=== PATIENT | female | born 1990 | race Caucasian/White ===

== ENCOUNTER 2016-08-02 16:25 | Emergency (ER) | payer OTHER ==
[~2016-08-02 16:25] MED LIST: ACET50TA PO; ADV250INH INH; ALBU17IN INH; CLAR1TAB2 PO; DELT1TAB PO; IBUP80TA PO; IPRASOL4 IN; LEVA500T PO; MIREIUD IU; NORE0.352 PO; OMEP40CA2 PO; PRENTAB74 PO; PROA1AER INH
[2016-08-02] MEDS ORDERED: ONDANSETRON 4 MG ORAL DISINTEGRATING TAB (S0181) As Ordered ONE (18:27)
[2016-08-02] MEDS ORDERED: ACETAMINOPHEN 325 MG TAB As Ordered ONE (18:27)
--- NOTE | 2016-08-02 19:10 | REPUSA ---
CLINICAL HISTORY: Trauma. TECHNIQUE: Multiple axial CT images were obtained through brain without IV contrast material. COMMENTS: The study shows normal configuration of sella turcica. There are no intra or extra-axial collections. There is no mass effect or midline shift. There is no evidence of hematoma formation. No hydrocephalus is present. The ventricles are symmetrical. No abnormal calcifications are present. No significant focal abnormalities are seen either in the posterior fossa or supratentorial compartme nt. IMPRESSION: No acute intracranial pathology. Thank you for your kind referral of this patient.
--- NOTE | 2016-08-02 19:36 | EDDOCDS ---
Physician Documentation [facility] Name: Sinai Omalley Age: 26 yrs Sex: Female : 1990 Arrival Date: 08/02/2016 Time: 16:25 Bed Private MD: Khari Parikh O Disposition: 08/02/16 19:23 Discharged to Home/Self Care. Impression: Concussion with loss of consciousness of 30 minutes or less, Contusion of lower back and pelvis. - Condition is Stable. - Discharge Instructions: Back Pain, Adult, Concussion, Adult, Head Injury, Adult. - Prescriptions for ZOFRAN ODT 4 mg - dissolve 1 tablet by ORAL route 4 times per day As needed do not chew, do not swallow whole; 10 tablet. - Work Release Form - 3 day, Medication Reconciliation, Local Pharmacy Hours form. - Follow up: Khari Parikh; When: Call to arrange an appointment; Reason: Recheck today's complaints, Continuance of care. - Problem is new. - Symptoms are unchanged. Historical: - Allergies: SHELLFISH; sea food; mushrooms; - Home Meds: 1. advair inhaler not diskus twice a day (Last dose: 08/02/2016 07:00) 2. Albuterol Inhl as needed (Last dose: 08/02/2016) 3. Claritin 10 mg Oral tab 1 tab once daily all out has been about 4 days (Last dose: 08/02/2016 07:00) 4. Mirena IUD (Last dose: 08/02/2016) 5. Miralax 17 gram Oral pwpk 1 packet once daily (Last dose: 08/02/2016 07:00) - PMHx: Seasonal Allergies; Ovarian cyst; Asthma; - PSHx: d&C 2008; - Social history: Smoking status: Patient states was never smoker of tobacco. Patient/guardian denies using alcohol, street drugs, No barriers to communication noted, The patient speaks fluent Telugu, Speaks appropriately for age. - Family history: Not pertinent. - : The pt / caregiver states he / she is not on anticoagulants. Home medication list is obtained from the patient. - Exposure Risk Screening:: None identified. 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 5 in. (165.10 cm) (R); Pain 9/10; 19:34 BP 117 / 76; Pulse 80; Resp 18; Temp 96.9; Pulse Ox 97% ; Pain 6/10; rn1 16:27 Body Mass Index 27.46 (74.84 kg, 165.10 cm) dem1 [place] Coma Score: 17:10 Eye Response: spontaneous(4). Verbal Response: oriented(5). Motor Response: obeys ttb commands(6). Total: 15. MDM: 18:17 Ondansetron ODT Oral Disintegrating Tablet 4 mg PO once ordered. mo1 18:17 Acetaminophen Tablet 975 mg PO once ordered. mo1 18:18 CT Head Without Contrast Ordered. EDMS 18:19 Spine. Lumbosacral, Complete Ordered. EDMS 18:42 Financial registration complete. gjb 18:44 [facility] Payment Agreement was scanned into [employer] and attached to record. gjb Administered Medications: 18:30 Drug: Ondansetron ODT 4 mg [ondansetron 4 mg disintegrating tablet (1 tabs)] Route: PO; ttb 18:30 Drug: Acetaminophen 975 mg [acetaminophen 325 mg tablet (3 tabs)] Route: PO; ttb Signatures: Dispatcher [facility] EDWI Hannah Hansen RN RN ttb Tex Magaña PA PA mo1 Benji Bills RN RN jmb Beck, Gabriela gjb The chart was reviewed and I authenticate all verbal orders and agree with the evaluation and treatment provided.Attachments: 18:44 [facility] [place] Payment Agreement gjb MTDD
--- NOTE | 2016-08-02 19:36 | EDDOCDS ---
Nurse's Notes [facility] Name: Sinai Omalley Age: 26 yrs Sex: Female : 1990 Arrival Date: 08/02/2016 Time: 16:25 Bed PR Private MD: Khari Parikh O Diagnosis: Concussion with loss of consciousness of 30 minutes or less;Contusion of lower back and pelvis Presentation: 08/02 17:10 Presenting complaint: Patient states: pt fell and hit head on her tire around 345pm. Pt ttb states she does not know how long she was out for unknown amt of time. Friend told pt what happened..... "5 minutes but I don't remember". Headache now. Nausea. Lower Back pain. Pt drove herself here from work. unsure of time of unconsciousness -- friend witnessed. Mechanism of Injury: resulted from a fall. Adult Sepsis Screening: The patient does not have new or worsening altered mentation. Patient's respiratory rate is less than 22. Systolic blood pressure is greater than 100. Patient has a qSOFA score of 0- Negative Sepsis Screen. Suicide/Homicide risk assessment- the patient denies having any suicidal and/or homicidal ideations and does not present with any other emotional, behavioral or mental health complaints. Status: The patient is a dependent. Transition of care: patient was not received from another setting of care. 17:10 Acuity: CORAZON Level 4 ttb 17:10 Method Of Arrival: Walkin/Carried/Asstd ttb Triage Assessment: 17:13 General: Appears in no apparent distress, well nourished, well groomed, Behavior is ttb appropriate for age, cooperative, pleasant. Pain: Location: headache & lower back Pain currently is 9 out of 10 on a pain scale. HIV screening NA for this visit Offered previously. Neurological: Level of Consciousness is awake, alert, Oriented to person, place, time, Moves all extremities. Gait is steady, Speech is normal, Facial symmetry appears normal, Reports headache. Cardiovascular: Chest pain is denied. Respiratory: No deficits noted. Airway is patent Respiratory effort is even, unlabored, Denies cough, shortness of breath. GI: Reports nausea. Derm: Skin is normal. Musculoskeletal: Range of motion intact in all extremities. Injury Description: pt fell from standing. 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 advair inhaler not diskus twice a day (Last dose: 08/02/2016 07:00) 2. Albuterol Inhl as needed (Last dose: 08/02/2016) 3. Claritin 10 mg Oral tab 1 tab once daily all out has been about 4 days (Last dose: 08/02/2016 07:00) 4. Mirena IUD (Last dose: 08/02/2016) 5. Miralax 17 gram Oral pwpk 1 packet once daily (Last dose: 08/02/2016 07:00) - PMHx: Seasonal Allergies; Ovarian cyst; Asthma; - PSHx: d&C 2008; - Social history: Smoking status: Patient states was never smoker of tobacco. Patient/guardian denies using alcohol, street drugs, No barriers to communication noted, The patient speaks fluent Georgian, Speaks appropriately for age. - Family history: Not pertinent. - : The pt / caregiver states he / she is not on anticoagulants. Home medication list is obtained from the patient. - Exposure Risk Screening:: None identified. Screenin:27 Screening information is obtained from the patient. Fall risk: No risks identified. jmb Assistance ADL's: requires no assistance with activities of daily living. Abuse/DV Screen: The patient / caregiver reports he/she is: not in a situation that causes fear, pain or injury. Nutritional screening: No deficits noted. Advance Directives: Currently, there is no health care proxy. There is no active DNR order. There is no living will. There is no Power of Solar Sales Advisor. home support is adequate. Assessment: 19:27 General:. jmb 19:27 General: Patient instructed on discharge instructions. Patient asked if there were any b questions regarding discharge, patient stated no. Patient signed discharge instructions. Patient discharged in stable condition. . Vital Signs: 16:27 BP 138 / 85; Pulse 108; Resp 18; Temp 98.3(O); Pulse Ox 98% on R/A; Weight 74.84 kg dem1 (R); Height 5 ft. 5 in. (165.10 cm) (R); Pain 9/10; 19:34 BP 117 / 76; Pulse 80; Resp 18; Temp 96.9; Pulse Ox 97% ; Pain 6/10; rn1 16:27 Body Mass Index 27.46 (74.84 kg, 165.10 cm) dem1 Vitals: 16:27 Log In Time: August 02, 2016 at 16:23. dem1 [place] Coma Score: 17:10 Eye Response: spontaneous(4). Verbal Response: oriented(5). Motor Response: obeys ttb commands(6). Total: 15. ED Course: 16:27 Patient visited by Mackenzie Delvalle. dem1 16:27 Khari Parikh is Private Physician. dem1 16:27 Patient moved to Waiting dem1 16:29 Patient moved to Pre RCE dem1 17:12 Triage Initiated ttb 17:47 Patient moved to Triage 2 kr3 18:09 Tex Magaña PA is PHCP. mo1 18:09 Lucy Fontaine MD is Attending Physician. mo1 18:12 Patient visited by Tex Magaña PA. mo1 18:32 Patient moved to TR1 ttb 18:44 [facility] Payment Agreement was scanned into [employer] and attached to record. gjb 19:16 Patient visited by Cheyenne Tuttle RN. ck1 19:16 Patient moved to PR1 / 25 ck1 19:23 Khari Parikh is Referral Physician. mo1 19:27 The patient / caregiver is instructed regarding the plan of care and ED course. jmb 19:27 No IV's were initiated during this patient's visit. No procedures done that require jmb assistance. Administered Medications: 18:30 Drug: Ondansetron ODT 4 mg [ondansetron 4 mg disintegrating tablet (1 tabs)] Route: PO; ttb 18:30 Drug: Acetaminophen 975 mg [acetaminophen 325 mg tablet (3 tabs)] Route: PO; ttb Order Results: There are currently no results for this order. Outcome: 19:23 Discharge ordered by Provider. mo1 19:27 Discharge Assessment: Patient awake, alert and oriented x 3. No cognitive and/or jmb functional deficits noted. Patient verbalized understanding of disposition instructions. Patient awake and alert. obeys commands, Oriented to person, place and time. Patient verbalized understanding of disposition instructions. Patient has no functional deficits. patient administered narcotics - no. The following High Risk Discharge criteria are identified: None. Discharged to home ambulatory. Condition: stable. Discharge instructions given to patient, Instructed on discharge instructions, follow up and referral plans. Demonstrated understanding of instructions, Pt was receptive of discharge instructions/ teaching. CT Study completed. Property sent home with patient. 19:34 Patient left the ED. b Signatures: Cheyenne Tuttle,RN RN ck1 Doreen RetanaRN RN kr3 Mackenzie Delvalle1 Hannah Hansen RN RN ttb Tex Magaña PA PA mo1 Benji Bills RN RN Gaetano Gomez rn1 Melva Arroyo Corrections: (The following items were deleted from the chart) 17:14 17:10 Presenting complaint: Patient states: pt fell and hit head on her tire around ttb 345pm. Pt states she does not know how long she was out for unknown amt of time. Friend told pt what happened..... "5 minutes but I don't remember". Headache now. Nausea. Back pain. ttb MTDD
--- NOTE | 2016-08-02 19:58 | REP ---
Five view lumbosacral spine series, 08/02/2016: Indication: Trauma. Comparison: Lumbosacral spine series 07/24/2016. Findings: There is no acute fracture or spondylolisthesis in the lumbosacral spine. The disc spaces are well maintained. Visualized portions of sacrum and SI joints are intact. Intrauterine device is present in the lower central pelvis. There is very minimal lumbar levoscoliosis noted. Impression: Minimal lumbar levoscoliosis. No fracture or degenerative disc changes. Signed by Vanessa Palomares MD 08/05/2016 08:20 P
--- NOTE | 2016-08-04 20:36 | EDDOCDS ---
Nurse's Notes [facility] Name: Sinai Omalley Age: 26 yrs Sex: Female : 1990 Arrival Date: 08/02/2016 Time: 16:25 Bed PR Private MD: Khari Parikh O Diagnosis: Concussion with loss of consciousness of 30 minutes or less;Contusion of lower back and pelvis Presentation: 08/02 17:10 Presenting complaint: Patient states: pt fell and hit head on her tire around 345pm. Pt ttb states she does not know how long she was out for unknown amt of time. Friend told pt what happened..... "5 minutes but I don't remember". Headache now. Nausea. Lower Back pain. Pt drove herself here from work. unsure of time of unconsciousness -- friend witnessed. Mechanism of Injury: resulted from a fall. Adult Sepsis Screening: The patient does not have new or worsening altered mentation. Patient's respiratory rate is less than 22. Systolic blood pressure is greater than 100. Patient has a qSOFA score of 0- Negative Sepsis Screen. Suicide/Homicide risk assessment- the patient denies having any suicidal and/or homicidal ideations and does not present with any other emotional, behavioral or mental health complaints. Status: The patient is a dependent. Transition of care: patient was not received from another setting of care. 17:10 Acuity: CORAZON Level 4 ttb 17:10 Method Of Arrival: Walkin/Carried/Asstd ttb Triage Assessment: 17:13 General: Appears in no apparent distress, well nourished, well groomed, Behavior is ttb appropriate for age, cooperative, pleasant. Pain: Location: headache & lower back Pain currently is 9 out of 10 on a pain scale. HIV screening NA for this visit Offered previously. Neurological: Level of Consciousness is awake, alert, Oriented to person, place, time, Moves all extremities. Gait is steady, Speech is normal, Facial symmetry appears normal, Reports headache. Cardiovascular: Chest pain is denied. Respiratory: No deficits noted. Airway is patent Respiratory effort is even, unlabored, Denies cough, shortness of breath. GI: Reports nausea. Derm: Skin is normal. Musculoskeletal: Range of motion intact in all extremities. Injury Description: pt fell from standing. 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 advair inhaler not diskus twice a day (Last dose: 08/02/2016 07:00) 2. Albuterol Inhl as needed (Last dose: 08/02/2016) 3. Claritin 10 mg Oral tab 1 tab once daily all out has been about 4 days (Last dose: 08/02/2016 07:00) 4. Mirena IUD (Last dose: 08/02/2016) 5. Miralax 17 gram Oral pwpk 1 packet once daily (Last dose: 08/02/2016 07:00) - PMHx: Seasonal Allergies; Ovarian cyst; Asthma; - PSHx: d&C 2008; - Social history: Smoking status: Patient states was never smoker of tobacco. Patient/guardian denies using alcohol, street drugs, No barriers to communication noted, The patient speaks fluent Albanian, Speaks appropriately for age. - Family history: Not pertinent. - : The pt / caregiver states he / she is not on anticoagulants. Home medication list is obtained from the patient. - Exposure Risk Screening:: None identified. Screenin:27 Screening information is obtained from the patient. Fall risk: No risks identified. jmb Assistance ADL's: requires no assistance with activities of daily living. Abuse/DV Screen: The patient / caregiver reports he/she is: not in a situation that causes fear, pain or injury. Nutritional screening: No deficits noted. Advance Directives: Currently, there is no health care proxy. There is no active DNR order. There is no living will. There is no Power of Steam Drier Tender. home support is adequate. Assessment: 19:27 General:. jmb 19:27 General: Patient instructed on discharge instructions. Patient asked if there were any b questions regarding discharge, patient stated no. Patient signed discharge instructions. Patient discharged in stable condition. . Vital Signs: 16:27 BP 138 / 85; Pulse 108; Resp 18; Temp 98.3(O); Pulse Ox 98% on R/A; Weight 74.84 kg dem1 (R); Height 5 ft. 5 in. (165.10 cm) (R); Pain 9/10; 19:34 BP 117 / 76; Pulse 80; Resp 18; Temp 96.9; Pulse Ox 97% ; Pain 6/10; rn1 16:27 Body Mass Index 27.46 (74.84 kg, 165.10 cm) dem1 Vitals: 16:27 Log In Time: August 02, 2016 at 16:23. dem1 [place] Coma Score: 17:10 Eye Response: spontaneous(4). Verbal Response: oriented(5). Motor Response: obeys ttb commands(6). Total: 15. ED Course: 16:27 Patient visited by Mackenzie Delvalle. dem1 16:27 Khari Parikh is Private Physician. dem1 16:27 Patient moved to Waiting dem1 16:29 Patient moved to Pre RCE dem1 17:12 Triage Initiated ttb 17:47 Patient moved to Triage 2 kr3 18:09 Tex Magaña PA is PHCP. mo1 18:09 Lucy Fontaine MD is Attending Physician. mo1 18:12 Patient visited by Tex Magaña PA. mo1 18:32 Patient moved to TR1 ttb 18:44 [facility] Payment Agreement was scanned into [employer] and attached to record. gjb 19:16 Patient visited by Cheyenne Tuttle RN. ck1 19:16 Patient moved to PR1 / 25 ck1 19:23 Khari Parikh is Referral Physician. mo1 19:27 The patient / caregiver is instructed regarding the plan of care and ED course. jmb 19:27 No IV's were initiated during this patient's visit. No procedures done that require jmb assistance. 20:00 CT Head Without Contrast Returned. EDMS 20:01 Spine. Lumbosacral, Complete Returned. EDMS 08/03 07:03 T-Sheet-- Draft Copy was scanned into [employer] and attached to record. gb 10:57 Radiology Report was scanned into [employer] and attached to record. gb Administered Medications: 08/02 18:30 Drug: Ondansetron ODT 4 mg [ondansetron 4 mg disintegrating tablet (1 tabs)] Route: PO; ttb 18:30 Drug: Acetaminophen 975 mg [acetaminophen 325 mg tablet (3 tabs)] Route: PO; ttb Order Results: Radiology Order: CT Head Without Contrast Test: CT Head Without Contrast REASON FOR EXAMINATION: Trauma; ; CLINICAL HISTORY: Trauma.; TECHNIQUE: Multiple axial CT images were obtained through brain without IV contrast material.; COMMENTS:; The study shows normal configuration of sella turcica.; There are no intra or extra-axial collections. There is no mass effect or midline shift. There is no; evidence of hematoma formation. No hydrocephalus is present.; The ventricles are symmetrical. No abnormal calcifications are present.; No significant focal abnormalities are seen either in the posterior fossa or supratentorial compartme; nt.; IMPRESSION:; No acute intracranial pathology.; Thank you for your kind referral of this patient.; ; ; Radiology Order: Spine. Lumbosacral, Complete Test: Spine. Lumbosacral, Complete REASON FOR EXAMINATION: Trauma; Five view lumbosacral spine series, 08/02/2016:; ; Indication: Trauma.; ; Comparison: Lumbosacral spine series 07/24/2016.; ; Findings: There is no acute fracture or spondylolisthesis in the lumbosacral; spine. The disc spaces are well maintained. Visualized portions of sacrum and; SI joints are intact. Intrauterine device is present in the lower central; pelvis.; ; There is very minimal lumbar levoscoliosis noted.; ; Impression:; ; Minimal lumbar levoscoliosis. No fracture or degenerative disc changes.; ; ; ; ; Unreviewed; Outcome: 19:23 Discharge ordered by Provider. mo1 19:27 Discharge Assessment: Patient awake, alert and oriented x 3. No cognitive and/or jmb functional deficits noted. Patient verbalized understanding of disposition instructions. Patient awake and alert. obeys commands, Oriented to person, place and time. Patient verbalized understanding of disposition instructions. Patient has no functional deficits. patient administered narcotics - no. The following High Risk Discharge criteria are identified: None. Discharged to home ambulatory. Condition: stable. Discharge instructions given to patient, Instructed on discharge instructions, follow up and referral plans. Demonstrated understanding of instructions, Pt was receptive of discharge instructions/ teaching. CT Study completed. Property sent home with patient. 19:34 Patient left the ED. jmb Signatures: Dispatcher [employer] EDSuni Golden, Reg Reg Cheyenne DeleonRN RN ck1 Doreen Retana RN RN kr3 MookPennyinezduane dem1 Hannah Hansen RN RN ttb Tex Magaña PA PA mo1 Benji Bills RN RN avab Gaetano Hernandez rn1 Melva Arroyo Corrections: (The following items were deleted from the chart) 17:14 17:10 Presenting complaint: Patient states: pt fell and hit head on her tire around ttb 345pm. Pt states she does not know how long she was out for unknown amt of time. Friend told pt what happened..... "5 minutes but I don't remember". Headache now. Nausea. Back pain. ttb Chart Complete MTDD
--- NOTE | 2016-08-04 20:36 | EDDOCDS ---
Physician Documentation [facility] Name: Sinai Omalley Age: 26 yrs Sex: Female : 1990 Arrival Date: 08/02/2016 Time: 16:25 Bed Private MD: Khari Parikh O Disposition: 08/02/16 19:23 Discharged to Home/Self Care. Impression: Concussion with loss of consciousness of 30 minutes or less, Contusion of lower back and pelvis. - Condition is Stable. - Discharge Instructions: Back Pain, Adult, Concussion, Adult, Head Injury, Adult. - Prescriptions for ZOFRAN ODT 4 mg - dissolve 1 tablet by ORAL route 4 times per day As needed do not chew, do not swallow whole; 10 tablet. - Work Release Form - 3 day, Medication Reconciliation, Local Pharmacy Hours form. - Follow up: Khari Parikh; When: Call to arrange an appointment; Reason: Recheck today's complaints, Continuance of care. - Problem is new. - Symptoms are unchanged. Historical: - Allergies: SHELLFISH; sea food; mushrooms; - Home Meds: 1. advair inhaler not diskus twice a day (Last dose: 08/02/2016 07:00) 2. Albuterol Inhl as needed (Last dose: 08/02/2016) 3. Claritin 10 mg Oral tab 1 tab once daily all out has been about 4 days (Last dose: 08/02/2016 07:00) 4. Mirena IUD (Last dose: 08/02/2016) 5. Miralax 17 gram Oral pwpk 1 packet once daily (Last dose: 08/02/2016 07:00) - PMHx: Seasonal Allergies; Ovarian cyst; Asthma; - PSHx: d&C 2008; - Social history: Smoking status: Patient states was never smoker of tobacco. Patient/guardian denies using alcohol, street drugs, No barriers to communication noted, The patient speaks fluent Georgian, Speaks appropriately for age. - Family history: Not pertinent. - : The pt / caregiver states he / she is not on anticoagulants. Home medication list is obtained from the patient. - Exposure Risk Screening:: None identified. 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 5 in. (165.10 cm) (R); Pain 9/10; 19:34 BP 117 / 76; Pulse 80; Resp 18; Temp 96.9; Pulse Ox 97% ; Pain 6/10; rn1 16:27 Body Mass Index 27.46 (74.84 kg, 165.10 cm) dem1 [place] Coma Score: 17:10 Eye Response: spontaneous(4). Verbal Response: oriented(5). Motor Response: obeys ttb commands(6). Total: 15. MDM: 18:17 Ondansetron ODT Oral Disintegrating Tablet 4 mg PO once ordered. mo1 18:17 Acetaminophen Tablet 975 mg PO once ordered. mo1 18:18 CT Head Without Contrast Ordered. EDMS 18:19 Spine. Lumbosacral, Complete Ordered. EDMS 18:42 Financial registration complete. [facility] 18:44 [facility] Payment Agreement was scanned into [employer] and attached to record. [facility] 08/03 07:03 T-Sheet-- Draft Copy was scanned into [employer] and attached to record. 10:57 Radiology Report was scanned into [employer] and attached to record. gb Administered Medications: 08/02 18:30 Drug: Ondansetron ODT 4 mg [ondansetron 4 mg disintegrating tablet (1 tabs)] Route: PO; ttb 18:30 Drug: Acetaminophen 975 mg [acetaminophen 325 mg tablet (3 tabs)] Route: PO; ttb Signatures: Dispatcher [employer] EDIN Suni Harris, Reg Reg gb Hannah Hansen RN RN ttb Tex Magaña PA PA mo1 Benji Bills RN RN Melva Cramer The chart was reviewed and I authenticate all verbal orders and agree with the evaluation and treatment provided.Attachments: 18:44 [facility] Payment Agreement [facility] 08/03 07:03 T-Sheet-- Draft Copy gb Chart Complete MTDD
--- NOTE | 2016-08-04 20:36 | EDDOCDS ---
Physician Documentation [facility] Name: Sinai Omalley Age: 26 yrs Sex: Female : 1990 Arrival Date: 08/02/2016 Time: 16:25 Bed Private MD: Khari Parikh O Disposition: 08/02/16 19:23 Discharged to Home/Self Care. Impression: Concussion with loss of consciousness of 30 minutes or less, Contusion of lower back and pelvis. - Condition is Stable. - Discharge Instructions: Back Pain, Adult, Concussion, Adult, Head Injury, Adult. - Prescriptions for ZOFRAN ODT 4 mg - dissolve 1 tablet by ORAL route 4 times per day As needed do not chew, do not swallow whole; 10 tablet. - Work Release Form - 3 day, Medication Reconciliation, Local Pharmacy Hours form. - Follow up: Khari Parikh; When: Call to arrange an appointment; Reason: Recheck today's complaints, Continuance of care. - Problem is new. - Symptoms are unchanged. Historical: - Allergies: SHELLFISH; sea food; mushrooms; - Home Meds: 1. advair inhaler not diskus twice a day (Last dose: 08/02/2016 07:00) 2. Albuterol Inhl as needed (Last dose: 08/02/2016) 3. Claritin 10 mg Oral tab 1 tab once daily all out has been about 4 days (Last dose: 08/02/2016 07:00) 4. Mirena IUD (Last dose: 08/02/2016) 5. Miralax 17 gram Oral pwpk 1 packet once daily (Last dose: 08/02/2016 07:00) - PMHx: Seasonal Allergies; Ovarian cyst; Asthma; - PSHx: d&C 2008; - Social history: Smoking status: Patient states was never smoker of tobacco. Patient/guardian denies using alcohol, street drugs, No barriers to communication noted, The patient speaks fluent [place], Speaks appropriately for age. - Family history: Not pertinent. - : The pt / caregiver states he / she is not on anticoagulants. Home medication list is obtained from the patient. - Exposure Risk Screening:: None identified. 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 5 in. (165.10 cm) (R); Pain 9/10; 19:34 BP 117 / 76; Pulse 80; Resp 18; Temp 96.9; Pulse Ox 97% ; Pain 6/10; rn1 16:27 Body Mass Index 27.46 (74.84 kg, 165.10 cm) dem1 Yue Coma Score: 17:10 Eye Response: spontaneous(4). Verbal Response: oriented(5). Motor Response: obeys ttb commands(6). Total: 15. MDM: 18:17 Ondansetron ODT Oral Disintegrating Tablet 4 mg PO once ordered. mo1 18:17 Acetaminophen Tablet 975 mg PO once ordered. mo1 18:18 CT Head Without Contrast Ordered. EDMS 18:19 Spine. Lumbosacral, Complete Ordered. EDMS 18:42 Financial registration complete. [facility] 18:44 [facility] Payment Agreement was scanned into [employer] and attached to record. [facility] 08/03 07:03 T-Sheet-- Draft Copy was scanned into [employer] and attached to record. 10:57 Radiology Report was scanned into [employer] and attached to record. gb Administered Medications: 08/02 18:30 Drug: Ondansetron ODT 4 mg [ondansetron 4 mg disintegrating tablet (1 tabs)] Route: PO; ttb 18:30 Drug: Acetaminophen 975 mg [acetaminophen 325 mg tablet (3 tabs)] Route: PO; ttb Signatures: Dispatcher [employer] EDIL Suni Harris, Reg Reg gb Hannah Hansen RN RN ttb Tex Magaña PA PA mo1 Benji Bills RN RN Melva Cramer The chart was reviewed and I authenticate all verbal orders and agree with the evaluation and treatment provided.Attachments: 18:44 [facility] Payment Agreement [facility] 08/03 07:03 T-Sheet-- Draft Copy gb Chart Complete MTDD
== END 2016-08-02 19:34 | disposition home or self-care (01) ==
LOC: M ED 16:25
DX: S30.0XXA Contusion of lower back and pelvis, initial encounter (principal); S06.0X0A Concussion without loss of consciousness, initial encounter; W18.09XA Striking against other object with subsequent fall, initial encounter; Y92.89 Other specified places as the place of occurrence of the external cause; Y93.89 Activity, other specified; Y99.1 Military activity; J45.909 Unspecified asthma, uncomplicated; Z79.3 Long term (current) use of hormonal contraceptives; Z79.899 Other long term (current) drug therapy; Z91.013 Allergy to seafood; Z91.018 Allergy to other foods

== ENCOUNTER 2016-11-01 18:01 | Emergency (ER) | payer OTHER ==
[~2016-11-01] VITALS: Ht 165.1 cm; Wt 75.7 kg
[2016-11-01 18:01] VITALS: BP 143/94
[2016-11-01] MEDS ORDERED: PRED20TA PO (18:50)
[2016-11-01] MEDS ORDERED: SALI0.653 (18:50)
== END 2016-11-01 18:58 | disposition home or self-care (01) ==
LOC: M ED 18:44
DX: R04.0 Epistaxis (principal); J06.9 Acute upper respiratory infection, unspecified; R11.2 Nausea with vomiting, unspecified; Z91.013 Allergy to seafood; Z91.018 Allergy to other foods; Z79.899 Other long term (current) drug therapy; J45.909 Unspecified asthma, uncomplicated; N83.209 Unspecified ovarian cyst, unspecified side